=== PATIENT | female | born 1995 | race Caucasian/White ===

== ENCOUNTER 2022-03-20 15:02 | Outpatient (CLI) | payer OTHER | END 2022-03-20 15:03 | disposition home or self-care (01) | LOC: CSHLAB 15:02 | PROVIDERS: ATTEND Student in an Organized Health Care Education/Training Program | DX: Z01.812 Encounter for preprocedural laboratory examination (principal); R10.2 Pelvic and perineal pain | CPT/HCPCS: 84703; 85027; 86850; 86900; 86901 ==

== ENCOUNTER 2022-03-22 11:10 | Day surgery (SDC) | payer OTHER ==
[2022-03-17 09:28] VITALS: BMI 23.0
[2022-03-20 16:00] LABS: Mean Corpuscular HGB CONC 35.1 g/dL (32.0-36.0); Mean Corpuscular Hemoglobin 29.2 pg (27.0-33.0); Mean Corpuscular Volume 83.3 fl (81.6-98.3); Mean Platelet Volume 9.2 fl (7.4-10.4); Platelet Count 323 10x3/uL (150-450); RBC Distribution Width 12.3 % (11.5-14.5); Red Blood Cell (RBC) Count 4.79 10x6/uL (3.90-5.03)
[2022-03-20 16:13] LABS: BHCG - Serum Negative (NEGATIVE); Pregs Control Background? CLEAR/WHITE (CLR/WHITE); Pregs Control Bar Appear? YES (CONTROL BAR)
[2022-03-22] MEDS ORDERED: Gabapentin 300 MG CAP ONE (11:28)
[2022-03-22] MEDS ORDERED: CeleCOXIB 100 MG CAP ONE (11:28)
[2022-03-22] MEDS ORDERED: Famotidine/PF 20 mg/2ml Vial ONE (11:29)
[2022-03-22] MEDS ORDERED: Midazolam HCl 2 mg/2 ml Vial ONE ×2 (13:13→13:47)
[2022-03-22] MEDS ORDERED: Bupivacaine PF 0.5% 30 ML VIAL ONE (13:46)
[2022-03-22] MEDS ORDERED: EPINEPHrine 1 MG/ML AMP ONE (13:46)
[2022-03-22] MEDS ORDERED: PROPOFOL 20 ML ONE (13:47)
[2022-03-22] MEDS ORDERED: Fentanyl 100 MCG/2 ML VIAL ONE ×2 (13:47→15:43)
[2022-03-22] MEDS ORDERED: Ketorolac Tromethamine 30 MG/ML VIAL ONE (13:48)
[2022-03-22] MEDS ORDERED: Rocuronium Bromide 10 MG/ML (10ML VIAL) ONE (13:48)
[2022-03-22] MEDS ORDERED: Lidocaine 2% PF 5 ML VIAL ONE (13:48)
[2022-03-22] MEDS ORDERED: Glycopyrrolate 0.2 MG/ML 5 ML SYRINGE ONE (13:48)
[2022-03-22] MEDS ORDERED: Ondansetron PF 4 MG/2 ML Vial ONE (13:48)
[2022-03-22] MEDS ORDERED: Dexamethasone 20 MG/5 ML VIAL ONE (13:48)
[2022-03-22] MEDS ORDERED: CEFAZOLIN 2 GM VIAL ONE (14:01)
[2022-03-22] MEDS ORDERED: Meperidine HCl/PF 25 MG/ML VIAL ONE (15:30)
[2022-03-22] MEDS ORDERED: HYDROcodone/Acetaminophen 5/325 mg Tablet ONE (17:05)
== END 2022-03-22 18:20 | disposition home or self-care (01) ==
LOC: CSHSDC 11:10
PROVIDERS: ATTEND Student in an Organized Health Care Education/Training Program
PROC: 0UB94ZX Excision of Uterus, Percutaneous Endoscopic Approach, Diagnostic (ICD-10-PCS; principal; 2022-03-22)
PROC: 0DNN4ZZ Release Sigmoid Colon, Percutaneous Endoscopic Approach (ICD-10-PCS; principal; 2022-03-22)
DX: N93.9 Abnormal uterine and vaginal bleeding, unspecified (principal); N80.00 Endometriosis of the uterus, unspecified; J45.909 Unspecified asthma, uncomplicated; F32.A Depression, unspecified; F41.9 Anxiety disorder, unspecified; G89.18 Other acute postprocedural pain; K21.9 Gastro-esophageal reflux disease without esophagitis; Z88.1 Allergy status to other antibiotic agents; Z79.899 Other long term (current) drug therapy; Z91.013 Allergy to seafood; N80.A61 Endometriosis of right ureter, unspecified depth
CPT/HCPCS: 84703; 85027; 86850; 86900; 86901; 88305; 88341; 88342; J0171; J1100; J1885; J2001; J2175; J2250; J2405; J2704; J3010; S0020; S0028

== ENCOUNTER 2024-02-14 13:16 | Outpatient (CLI) | payer OTHER | END 2024-02-14 13:17 | disposition home or self-care (01) | LOC: CSHULT 13:16 | PROVIDERS: ATTEND Family Medicine | DX: R94.31 Abnormal electrocardiogram [ECG] [EKG] (principal) | CPT/HCPCS: 93306 ==

== ENCOUNTER 2024-09-15 11:52 | Outpatient (CLI) | payer OTHER | END 2024-09-15 11:53 | disposition home or self-care (01) | LOC: CSHLAB 11:52 | PROVIDERS: ATTEND Student in an Organized Health Care Education/Training Program | DX: Z01.812 Encounter for preprocedural laboratory examination (principal); N80.9 Endometriosis, unspecified | CPT/HCPCS: 84703; 85027; 86850; 86900; 86901 ==

== ENCOUNTER 2024-09-17 09:40 | Day surgery (SDC) | payer OTHER ==
[2024-09-15 12:39] VITALS: BMI 23.3
[2024-09-15 13:05] LABS: Hematocrit 41.4 % (34.9-44.5); Hemoglobin 14.1 g/dL (12.0-15.5); Mean Corpuscular Hemoglobin 30.4 pg (27.0-33.0); Mean Corpuscular Volume 89.2 fL (81.6-98.3); Platelet Count 299 10x3/uL (150-450); Red Blood Cell (RBC) Count 4.64 10x6/uL (3.90-5.03); White Blood Cell (WBC) Count 9.56 10x3/uL (3.5-10.5)
[2024-09-15 13:31] LABS: BHCG - Serum Negative (NEGATIVE); Pregs Control Bar Appear? YES (CONTROL BAR)
[2024-09-15 13:32] LABS: Pregs Control Background? CLEAR/WHITE (CLR/WHITE)
[2024-09-17] MEDS ORDERED: Lidocaine 1% PF 5 ML VIAL ONE (11:15)
[2024-09-17] MEDS ORDERED: PROPOFOL 20 ML ONE (11:15)
[2024-09-17] MEDS ORDERED: Rocuronium Bromide 10 MG/ML (10ML VIAL) ONE (11:15)
[2024-09-17] MEDS ORDERED: Bupivacaine HCl 0.5%/Epinephrine 1:200,000/PF 30 ml Vial ONE (12:03)
[2024-09-17] MEDS ORDERED: SUGAMMADEX SODIUM 200 MG/2 ML VIAL ONE (12:46)
[2024-09-17] MEDS ORDERED: CEFAZOLIN 1 GM VIAL ONE (12:46)
[2024-09-17] MEDS ORDERED: HYDROcodone/Acetaminophen 5/325 mg Tablet ONE (15:10)
== END 2024-09-17 16:00 | disposition home or self-care (01) ==
LOC: CSHSDC 09:40
PROVIDERS: ATTEND Student in an Organized Health Care Education/Training Program
PROC: 0DBW4ZZ Excision of Peritoneum, Percutaneous Endoscopic Approach (ICD-10-PCS; principal; 2024-09-17)
DX: N80.3C1 Endometriosis of the right uterosacral ligament, unspecified depth (principal); N80.351 Endometriosis of the right pelvic sidewall, unspecified depth; N30.20 Other chronic cystitis without hematuria; N71.1 Chronic inflammatory disease of uterus; D21.9 Benign neoplasm of connective and other soft tissue, unspecified; J45.909 Unspecified asthma, uncomplicated; Z88.8 Allergy status to other drugs, medicaments and biological substances; Z91.041 Radiographic dye allergy status; Z91.013 Allergy to seafood; Z79.51 Long term (current) use of inhaled steroids
CPT/HCPCS: 84703; 85027; 86850; 86900; 86901; 88305; J0690; J2250; J2704; J3010

== ENCOUNTER 2024-09-24 20:26 | Emergency (ER) | payer OTHER ==
[~2024-09-24 20:26] MED LIST: Iopamidol 300 61% 100 ML VIAL FS ONE
[2024-09-24 20:59] LABS: #Basophils 0.06 10x3/uL (0.0-0.2); #Eosinophils 0.17 10x3/uL (0.0-0.5); #Monocytes 0.42 10x3/uL (0.0-1.1); #Neutrophils 5.83 10x3/uL (1.5-8.4); %Basophils 0.7 % (0.0-2.0); %Eosinophils 2.0 % (0.0-6.0); %Lymphocytes 23.7 % (18.0-47.0); %Monocytes 4.9 % (0.0-10.0); %Neutrophils 68.2 % (40.0-75.0); Hematocrit 41.3 % (34.9-44.5); Hemoglobin 14.6 g/dL (12.0-15.5); Mean Corpuscular Hemoglobin 30.9 pg (27.0-33.0); Mean Corpuscular Volume 87.3 fL (81.6-98.3); Platelet Count 426 10x3/uL (150-450); Red Blood Cell (RBC) Count 4.73 10x6/uL (3.90-5.03); White Blood Cell (WBC) Count 8.55 10x3/uL (3.5-10.5)
[2024-09-24 21:11] LABS: ALT (SGPT) 12 U/L (Less than 34); AST (SGOT) 27 U/L (11-34); Albumin 4.9 g/dL (3.1-4.5); Alkaline Phosphatase 70 U/L (40-110); Anion Gap 12 mmol/L (10-20); BHCG - Serum Negative (NEGATIVE); BUN (Urea Nitrogen) 11 mg/dL (7.0-18.7); Bilirubin, Total 0.9 mg/dL (0.3-1.2); Calc. Creatinine Clearance 0 mL/min (70-130); Calcium 9.8 mg/dL (7.8-10.44); Carbon Dioxide 27 mmol/L (22-29); Chloride 104 mmol/L (98-107); Globulin 3.2 g/dL (2.4-3.5); Glucose 131 mg/dL (70-105); Potassium 3.8 mmol/L (3.5-5.1); Pregs Control Background? CLEAR/WHITE (CLR/WHITE); Pregs Control Bar Appear? YES (CONTROL BAR); Sodium 139 mmol/L (136-145)
[2024-09-24 22:23] LABS: Glucose, Urine (Dipstick) Normal (Negative); Leukocyte Negative (Negative); Protein, Urine (Dipstick) Negative (Neg-Trace); Specific Gravity, Urine 1.005 (1.005-1.030)
[2024-09-24 22:51] LABS: Bacteria/HPF None Seen HPF (None Seen); CAUTI Indications for Culture Fever or rigors; RBC/HPF None Seen HPF (0-3); WBC/HPF None Seen HPF (0-3)
[2024-09-24 22:52] LABS: Urine Culture Reflex No No
[2024-09-24] MEDS ORDERED: diphenhydrAMINE 50 MG/ML VIAL ONE (23:18)
[2024-09-24] MEDS ORDERED: Famotidine/PF 20 mg/2ml Vial ONE (23:18)
== END 2024-09-25 02:01 | disposition home or self-care (01) ==
LOC: CSHERS 20:26
DX: G89.18 Other acute postprocedural pain (principal); R06.02 Shortness of breath; R07.9 Chest pain, unspecified
CPT/HCPCS: 36415; 71045; 74177; 80053; 81001; 83605; 84703; 85025; 85379; 87040; 93005; 96374; 96375; J1200; J1308; J2919

== ENCOUNTER 2025-01-12 15:24 | Emergency (ER) | payer OTHER ==
[2025-01-12] MEDS ORDERED: Lidocaine Viscous Sol 2% 15 ml UD Cup ONE (16:04)
[2025-01-12] MEDS ORDERED: HYDROcodone/Acetaminophen 5/325 mg Tablet ONE (16:04)
[2025-01-12] MEDS ORDERED: Lidocaine 1% (PF) 30 ML VIAL ONE (16:04)
== END 2025-01-12 17:41 | disposition home or self-care (01) ==
LOC: CSHERS 15:24
DX: K04.01 Reversible pulpitis (principal); N80.9 Endometriosis, unspecified; Z55.6 Problems related to health literacy
CPT/HCPCS: 64400; J2003